=== PATIENT | male | born 1950 | race Caucasian/White ===

== ENCOUNTER → 2018-10-22 | Outpatient (CLI) | payer MEDICARE, OTHER ==
--- NOTE | 2018-10-22 08:45 | XR ---
EXAMINATION TYPE: XR chest 2V DATE OF EXAM: 10/22/2018 COMPARISON: NONE HISTORY: Cough per patient. Atelectasis per order. TECHNIQUE: Frontal and lateral views of the chest are obtained. FINDINGS: Elevated left hemidiaphragm is present. There is some mild chronic parenchymal change suspe cted without suspicious focal air space opacity, pleural effusion, or pneumothorax seen bilaterally. The cardiac silhouette size is within normal limits. The osseous structures are intact. IMPRESSION: No suspicious acute infiltrate.
[2018-10-22 09:18] LABS: HCT 47.5 % (39.0-53.0); HGB 15.7 gm/dL (13.0-17.5); MCH 31.8 pg (25.0-35.0); MCV 96.2 fL (80.0-100.0); Mean Platelet Volume 7.8; Platelet Count 216 k/uL (150-450); RBC 4.94 m/uL (4.30-5.90); RDW 11.6 % (11.5-15.5); WBC 5.6 k/uL (3.8-10.6)
== END | disposition home or self-care (01) ==
LOC: RADXRMAIN 08:07
PROVIDERS: ATTEND Physician Assistant
DX: J98.11 Atelectasis (principal); D72.829 Elevated white blood cell count, unspecified
CPT/HCPCS: 36415; 71046; 85027

== ENCOUNTER → 2018-11-05 | Outpatient (CLI) | payer MEDICARE, OTHER ==
--- NOTE | 2018-11-05 11:33 | CT ---
EXAMINATION TYPE: CT chest wo con DATE OF EXAM: 11/05/2018 COMPARISON: None HISTORY: cough, moderate persistent asthma CT DLP: 760.7 mGycm, Automated exposure control for dose reduction was used. CONTRAST: None TECHNIQUE: Axial images were obtained at 1 mm thick sections at 10 mm intervals. This will limit po rtions of the examination which may not be visualized within the [id number]. Images were obtained in the prone and supine views. FINDINGS: Portion of the thyroid visualized is normal. No suspicious lung nodules or focal infiltrat es are present. There is some compressive atelectasis within the lingula which reverses on prone and supine imaging. No enlarged mediastinal or hilar adenopathy is evident. There are scattered small aortopulmonic win mable lymph nodes. The ascending aorta diameter at the level of the main pulmonary artery is 4.4 cm. T he main pulmonary artery diameter at the bifurcation is 3.0 cm. Minimal coronary artery calcification s present. Limited CT sections are obtained through the upper abdomen. Abdomen is essentially unremarkable. IMPRESSIONS: 1. Normal High Resolution Chest CT. 2. There is a 4.4 cm ascending thoracic aortic aneurysm.
== END | disposition home or self-care (01) ==
LOC: RADCTMAIN 07:34
PROVIDERS: ATTEND Allergy & Immunology
DX: I71.2 Thoracic aortic aneurysm, without rupture (principal); J45.40 Moderate persistent asthma, uncomplicated; R05 Cough
CPT/HCPCS: 71250

== ENCOUNTER → 2019-05-28 | Outpatient (CLI) | payer MEDICARE, OTHER ==
--- NOTE | 2019-05-28 14:31 | CT ---
EXAMINATION TYPE: CT angio chest DATE OF EXAM: 05/28/2019 COMPARISON: 11/05/2018 HISTORY: Follow up on thoracic aneurysm CT DLP: 413.4 mGycm. Automated Exposure Control for Dose Reduction was Utilized. CONTRAST: CTA scan of the thorax is performed with IV Contrast, patient injected with 100 mL of Isovue 370, pul monary embolism protocol. MIP Images are created on CT scanner and reviewed. FINDINGS: LUNGS: The lungs are grossly clear, there is no concerning parenchymal mass or nodule identified. T here is no pleural effusion or pneumothorax seen. The tracheobronchial tree is patent. MEDIASTINUM: Descending thoracic aorta is within normal limits of size measuring 3.0 cm. Mild aneurys mal dilatation of the aortic root measuring 4.0 cm and ascending thoracic aorta measuring 4.1 cm. Pul sation artifact limits evaluation of the aortic root dissection. No enlargement of the main pulmonary artery. There are no greater than 1 cm hilar or mediastinal lymph nodes. Mild coronary calcification s. No cardiomegaly or pericardial effusion is seen. OTHER: Cortical retraction of the right upper pole likely relates to prior scarring in the kidney. Le ft 1.5 cm renal cyst is seen. Stomach is incompletely distended. Mild multilevel degenerative changes of the thoracic spine. IMPRESSION: 1. Mild aneurysmal dilatation of the aortic root measuring 4.0 cm and ascending thoracic aorta measur ing 4.1 cm. The previous measurement on 11/05/2018 appears to be exaggerated given the high-resolution technique. 2. Bibasilar subsegmental atelectasis.
== END | disposition home or self-care (01) ==
LOC: RADCTMAIN 12:49
PROVIDERS: ATTEND Surgery
DX: I71.2 Thoracic aortic aneurysm, without rupture (principal); J98.11 Atelectasis
CPT/HCPCS: 36415; 71275; 82565; 84520

== ENCOUNTER → 2020-06-30 | Outpatient (CLI) | payer MEDICARE, OTHER ==
--- NOTE | 2020-06-30 10:32 | CT ---
EXAMINATION TYPE: CT angio chest DATE OF EXAM: 06/30/2020 10:16 AM COMPARISON: 05/28/2019 HISTORY: Follow up to thoracic aneurysm CT DLP: 837.7 mGycm Automated exposure control for dose reduction was used. CONTRAST: CTA scan of the thorax is performed without and with IV Contrast, patient injected with 100 mL of Iso evgeny 370, pulmonary embolism protocol. . FINDINGS: LUNGS: The lungs are grossly clear, there is no concerning parenchymal mass or nodule identified. T here is no pleural effusion or pneumothorax seen. The tracheobronchial tree is patent. MEDIASTINUM: There is satisfactory enhancement of the pulmonary artery and its branches, there is no CT evidence for pulmonary embolism. There are no greater than 1 cm hilar or mediastinal lymph nodes. Descending thoracic aorta is within normal limits of size measuring 3.0 cm. Mild aneurysmal dilata tion of the aortic root measuring 4.0 cm and ascending thoracic aorta measuring 4.3 cm. Pulsation art ifact limits evaluation of the aortic root dissection. No enlargement of the main pulmonary artery. OTHER: Cortical defect involving the right kidney compatible scarring chronic medical renal disease. Left-sided renal cyst stable. Hypertrophic and degenerative changes spine. IMPRESSION: 1. Ascending aortic aneurysm measures 4.3 cm and previously measured 4.1 cm. 2. Coronary artery atherosclerotic disease.
== END | disposition home or self-care (01) ==
LOC: RADCTMAIN 08:30
PROVIDERS: ATTEND Surgery
DX: I25.10 Atherosclerotic heart disease of native coronary artery without angina pectoris (principal); I71.2 Thoracic aortic aneurysm, without rupture
CPT/HCPCS: 82565; 84520; 71275; 36415; Q9967

== ENCOUNTER → 2021-06-23 | Outpatient (CLI) | payer MEDICARE, OTHER ==
--- NOTE | 2021-06-23 10:19 | CT ---
EXAMINATION TYPE: CT angio chest DATE OF EXAM: 06/23/2021 COMPARISON: 06/30/2020 HISTORY: thoracic aorta aneurysm CT DLP: 674.1 mGycm, Automated exposure control for dose reduction was used. CONTRAST: Performed injected with 80 mL of Isovue 370. TECHNIQUE: Axial images were obtained at 5 mm thick sections. Reconstructed images are reviewed on [employer] computer in the coronal plane. FINDINGS: Portion of the thyroid visualized is normal. No suspicious lung nodules or focal infiltrates are present. No enlarged mediastinal or hilar adenopathy is evident. The ascending aorta diameter at the level o f the main pulmonary artery is 4.1 cm. The main pulmonary artery diameter at the bifurcation is 2.6 cm. Coronary artery calcifications noted. The aorta at the aortic root measures 4.0 cm. The aorta at the main pulmonary artery is 4.1 cm. Trans verse dimension of the aorta at the aortic arch is 3.0 cm. The aorta at the diaphragm measures 3.[address] sections are obtained through the upper abdomen. Abdomen is essentially unremarkable. IMPRESSIONS: 1. No increasing size of ascending thoracic aortic aneurysm evident.
== END | disposition home or self-care (01) ==
LOC: RADCTMAIN 07:28
PROVIDERS: ATTEND Surgery
DX: I71.2 Thoracic aortic aneurysm, without rupture (principal)
CPT/HCPCS: 82565; 84520; 71275; 36415; Q9967

== ENCOUNTER → 2022-01-18 | Outpatient (CLI) | payer MEDICARE, OTHER ==
--- NOTE | 2022-01-18 11:30 | US ---
EXAMINATION TYPE: US carotid duplex BILAT DATE OF EXAM: 01/18/2022 COMPARISON: NONE CLINICAL HISTORY: R42 DIZZINESS AND GIDDINESS. TECHNIQUE: Carotid duplex ultrasound examination. Indirect Doppler criteria was utilized. FINDINGS: EXAM MEASUREMENTS: RIGHT: Peak Systolic Velocity (PSV) cm/sec ----- Right CCA: 53.8 ----- Right ICA: 82.5 ----- Right ECA: 69.4 ICA/CCA ratio: 1.5 RIGHT: End Diastole cm/sec ----- Right CCA: 15.4 ----- Right ICA: 26.7 ----- Right ECA: 11.9 LEFT: Peak Systolic Velocity (PSV) cm/sec ----- Left CCA: 63.3 ----- Left ICA: 72.1 ----- Left ECA: 61.6 ICA/CCA ratio: 1.1 LEFT: End Diastole cm/sec ----- Left CCA: 18.8 ----- Left ICA: 28.4 ----- Left ECA: 11.9 VERTEBRALS (direction of flow): Right Vertebral: Antegrade Left Vertebral: Antegrade Rhythm: Normal BARIATRIC SURGEON NOTES: No significant stenosis seen. Mildly elevated right ICA as compared to CCA due to being tortuous distally. IMPRESSION: Atheromatous plaquing noted at the right carotid bifurcation. Significant flow-limiting stenosis base d on velocity measurements is not evident. Note is made of tortuosity distal right internal carotid a rtery Criteria for Assigning % of Stenosis / Diameter reduction (Estimation based on the indirect measurements of the internal carotid artery velocities (ICA PSV). 1. Normal (no stenosis)=ICA PSV < 125 cm/s: ratio < 2.0: ICA EDV<40 cm/s. 2. Less than 50% stenosis=ICA PSV < 125 cm/s: ratio < 2.0: ICA EDV<40 cm/s. 3. 50 to 69% stenosis=ICA PSV of 125 to 230 cm/s: ration 2.0 ? 4.0: ICA EDV 40-100 cm/s. 4. Greater than 70% stenosis to near occlusion= ICA PSV > 230 cm/s: ratio > 4.0: ICA EDV > 100 cm/s. 5. Near occlusion= ICA PSV velocities may be low or undetectable: variable ratio and ICA EDV. 6. Total occlusion=unable to detect flow.
== END | disposition home or self-care (01) ==
LOC: RADUSWWP 10:53
PROVIDERS: ATTEND Family Medicine
DX: I65.21 Occlusion and stenosis of right carotid artery (principal)
CPT/HCPCS: 93880

== ENCOUNTER → 2023-07-03 | Outpatient (CLI) | payer MEDICARE, OTHER ==
[2023-07-03 13:33] LABS: African American GFR (CKD) 84 (>60 ml/min/1.73 sqM); Blood Urea Nitrogen 23 mg/dL (9-20); Non-African American GFR(CKD) 72 (>60 ml/min/1.73 sqM)
--- NOTE | 2023-07-03 14:37 | CT ---
EXAMINATION TYPE: CT angio chest CT DLP: 659.5 mGycm, Automated exposure control for dose reduction was used. DATE OF EXAM: 07/03/2023 2:02 PM COMPARISON: CT 06/23/2021. CLINICAL INDICATION:Male, 72 years old with history of I71.2 Thoracic aortic aneurysm, without ruptur e; aneurysm TECHNIQUE/CONTRAST: CTA scan of the thorax is performed with IV Contrast, patient injected with 100 mL of Isovue 370, MIP images are created and reviewed these are created on a separate workstation.. FINDINGS: Lungs/Pleura: No evidence of focal consolidation, pleural effusion or pneumothorax. Airway: Large airways are patent. Heart: Heart is within normal limits for size. Vasculature: No evidence for intramural hematoma on noncontrast imaging. No evidence of intimal flap to suggest dissection. No aneurysm identified. Scattered atherosclerotic disease. Ascending thoracic aorta ectasia up to 44 mm. Mediastinum: No gross evidence of adenopathy. Musculoskeletal: Mild degenerative disc disease changes are present throughout the thoracolumbar spin e. Soft Tissues: Unremarkable. Lower neck: No significant findings. Upper Abdomen: Left renal cyst. IMPRESSION: 1. Ectasia of ascending thoracic aorta without evidence for aneurysm. Descending thoracic aorta is w ithin normal limits for size. No evidence for occlusion dissection or pulmonary embolus. 2. No acute thoracic process. Follow up recommendations for incidental pulmonary nodules, if there are any, are per [employer] or [employer].
== END | disposition home or self-care (01) ==
LOC: RADCTMAIN 12:26
PROVIDERS: ATTEND Surgery
DX: I77.810 Thoracic aortic ectasia (principal)
CPT/HCPCS: 82565; 84520; 71275; Q9967

== ENCOUNTER 2023-07-08 12:28 | Inpatient (IN) | payer MEDICARE, OTHER ==
[2023-07-08 13:11] LABS: Glucose,Whole Blood 132 mg/dL (70-110)
--- NOTE | 2023-07-08 13:14 | ED ---
General Adult HPI - General Chief complaint: Neuro Symptoms/Deficit Stated complaint: weakness trouble talking Time Seen by Provider: 07/08/23 12:51 Source: patient, family, RN notes reviewed, old records reviewed Mode of arrival: ambulatory Limitations: no limitations - History of Present Illness Initial comments: Patient is a 72-year-old male who presents emergency department with neurological symptoms. Patient's last known well was 10 PM last night. Has a history apparently of respiratory aortic aneurysm however recent imaging obtained this month revealed that it does not appear to be present any longer.. Is a history of drinking alcohol daily. Denies any recent trauma. Went to bed at 2200 on 07/07/2023. Patient's had to wake him up this morning he seemed more weak than normal. Able to follow basic commands however states he has a mild headache and feels somewhat weak. Has a history of hypertension and hyperlipidemia as well. States he is not on blood thinners. Cannot recall his medications. His no other acute complaints at this time. Presents for further evaluation at this time. - Related Data Home Medications Medication Instructions Recorded Confirmed ALPRAZolam [Xanax] 0.25 mg PO DAILY PRN 07/08/23 07/08/23 Fluticasone/Umeclidin/Vilanter 1 puff INHALATION RT-DAILY 07/08/23 07/08/23 [[place] Ellipta 200-62.5-25] Irbesartan [Avapro] 300 mg PO DAILY 07/08/23 07/08/23 Montelukast [Singulair] 10 mg PO DAILY 07/08/23 07/08/23 Omeprazole [PriLOSEC] 20 mg PO BID 07/08/23 07/08/23 Rosuvastatin [Crestor] 10 mg PO DAILY 07/08/23 07/08/23 Sildenafil Citrate [Viagra] 100 mg PO DAILY PRN 07/08/23 07/08/23 Testosterone Cypionate 200 mg IM Q7D 07/08/23 07/08/23 [Depo-Testosterone] Zolpidem Tartrate [Ambien] 5 mg PO HS PRN 07/08/23 07/08/23 amLODIPine [Norvasc] 2.5 mg PO DAILY 07/08/23 07/08/23 oxyBUTYnin chloride [Ditropan] 5 mg PO TID 07/08/23 07/08/23 Allergies Allergy/AdvReac Type Severity Reaction Status Date / Time Penicillins Allergy Rash/Hives Verified 07/08/23 12:47 Review of Systems ROS Statement: Those systems with pertinent positive or pertinent negative responses have been documented in the HPI. Review of Systems: CONST: Denies fever EYES: Denies blurry vision ENT: Denies nasal congestion C/V: Denies Chest pain RESP: Denies shortness of breath GI: Denies abdominal pain : Denies dysuria SKIN: Denies rash. MSK: Denies joint pain. NEURO: Endorses headache, weakness ROS Other: All systems not noted in ROS Statement are negative. 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 HEAD: Normal with no signs of head trauma. EYES: PERRLA, EOMI, conjunctiva normal, no discharge. Pupils are 2 mm and equal bilaterally. ENT: Hearing grossly intact, normal oropharynx. RESPIRATORY: Clear breath sounds bilaterally. No wheezes, rales, or rhonchi. C/V: Regular rate and rhythm. S1 and S2 auscultated, no edema, peripheral pulses 2+ and intact throughout ABD: Abd is soft, nontender, nondistended EXT: Normal range of motion, no obvious deformity SKIN: No rashes or lesions observed on exposed skin. NEURO: Alert and oriented 3-4. Patient has an NIH of approximately 4. 1. each for dysarthria, ataxia and 1 extremity (left upper extremity), weakness with drift in the left upper extremity, weakness with drift of the left lower extremity. Last known well 0 on 07/07/2023. Woke up with symptoms this morning at 9:30 AM. Limitations: no limitations Course Vital Signs 07/08/23 07/08/23 07/08/23 12:41 13:31 15:00 Temperature 97.7 F Pulse Rate 92 89 89 Respiratory 16 20 18 Rate Blood Pressure 151/90 147/97 148/103 O2 Sat by Pulse 98 99 96 Oximetry 07/08/23 07/08/23 16:00 17:00 Temperature Pulse Rate 90 100 Respiratory 18 20 Rate Blood Pressure 144/95 147/102 O2 Sat by Pulse 97 97 Oximetry Medical Decision Making - Medical Decision Making Was pt. sent in by a medical professional or institution (, PA, CARDIOPULMONARY SPECIALIST, urgent care, hospital, or fpc...) When possible be specific @ -No Did you speak to anyone other than the patient for history (EMS, parent, family, police, friend...)? What history was obtained from this source @ -Patient's provided history including his baseline as well as her waking him up this morning which is abnormal. Did you review nursing and triage notes (agree or disagree)? Why? @ -I reviewed and agree with nursing and triage notes Were old charts reviewed (outside hosp., previous admission, EMS record, old EKG, old radiological studies, urgent care reports/EKG's, fpc records)? Report findings @ -Old charts reviewed Differential Diagnosis (chest pain, altered mental status, abdominal pain women, abdominal pain men, vaginal bleeding, weakness, fever, dyspnea, syncope, headache, dizziness, GI bleed, back pain, seizure, CVA, palpatations, mental health, musculoskeletal)? @ -Differential CVA Ischemic stroke, hemorrhagic stroke, brain tumor, atypical migraine, Wernicke's encephalopathy, seizure, multiple sclerosis, meningitis, encephalitis, hypoglycemia, Guillain-Villavicencio, electrolytes disturbance, myasthenia gravis.... This is not meant to be an all-inclusive list EKG interpreted by me (3pts min.). @ -As above X-rays interpreted by me (1pt min.). @ -Chest X-ray reveals no obvious acute cardio pulmonary process. CT interpreted by me (1pt min.). @ -Patient's CT imaging negative for any obvious acute process. This included CT angiogram of the head and neck as well as CT brain without contrast. U/S interpreted by me (1pt. min.). @ -None done What testing was considered but not performed or refused? (CT, X-rays, U/S, labs)? Why? @ -None What meds were considered but not given or refused? Why? @ -None Did you discuss the management of the patient with other professionals (professionals i.e. DrJaimee, PA, CARDIOPULMONARY SPECIALIST, lab, RT, psych nurse, health and social care teacher, material attendant, teacher, police or patrol park officer, comp field case manager)? Give summary @ -I discussed with neuro critical care on-call at 1310. He was in agreement with the plan. Was in agreement, stroke. Was in agreement that risks far outweigh the benefits of thrombolytics at this time. Discussed imaging results with Dr. Trivedi who was in agreement with the plan for medical management at this time. Recommended aspirin and Plavix. Recommended admission for neurology evaluation. I spoke with the admitting physician, Dr. York who accepted the admission. Was smoking cessation discussed for >3mins.? @ -No Was critical care preformed (if so, how long)? @ -Yes, 36 minutes. Were there social determinants of health that impacted care today? How? (Homelessness, low income, unemployed, alcoholism, drug addiction, transportation, low edu. Level, literacy, decrease access to med. care, assisted, rehab)? @ -No Was there de-escalation of care discussed even if they declined (Discuss DNR or withdrawal of care, Hospice)? DNR status @ -No What co-morbidities impacted this encounter? (DM, HTN, Smoking, COPD, CAD, Cancer, CVA, ARF, Chemo, Hep., AIDS, mental health diagnosis, sleep apnea, morbid obesity)? @ -None Was patient admitted / discharged? Hospital course, mention meds given and route, prescriptions, significant lab abnormalities, going to OR and other pertinent info. @ -Based on the patient's presentation and physical exam, he presents with focal neurological deficits. Concerned for possible stroke. NIH is 4. Last known well was 2200 on 07/07/2023. Weight stroke symptoms. Code stroke was activated. Patient patient's family in agreement this plan. Vital signs are currently within acceptable limits. Accu-Chek is within acceptable limits. EKG shows no signs of acute ischemia. I spoke with neuro critical care physician Dr. Trivedi who was in agreement with plan for code stroke and that patient is not a candidate for thrombolytic therapy at this time as risks far outweigh the benefits. Patient is outside of the window. Patient's CT imaging negative for any obvious acute findings. I discussed the results with Dr. Trivedi who was in agreement with the plan for medical management at this time. Was in agreement with initiating aspirin and Plavix therapy. Recommended admission. Neurology evaluation. Laboratory studies remarkable for a mild leukocytosis of 11.7. Patient's cre atinine kinase level is elevated to 2300. Remainder of the labs unremarkable.Patient will be given 2 L fluid bolus for rhabdomyolysis. On reevaluation, NIH is 1 at this time. Patient only has dysarthria. I discussed with the patient admission and he was in agreement this plan. He will be given aspirin and Plavix. I spoke the admitting team, Dr. York who accepted the patient. Undiagnosed new problem with uncertain prognosis? @ -No Drug Therapy requiring intensive monitoring for toxicity (Heparin, Nitro, Insulin, Cardizem)? @ -No Were any procedures done? @ -No Diagnosis/symptom? @ -CVA, dysarthria, rhabdomyolysis Acute, or Chronic, or Acute on Chronic? @ -Acute Uncomplicated (without systemic symptoms) or Complicated (systemic symptoms)? @ -Complicated Side effects of treatment? @ -none Exacerbation, Progression, or Severe Exacerbation] @ -no Poses a threat to life or bodily function? @ -Yes - Lab Data Result diagrams: 07/08/23 13:27 07/08/23 13:27 Lab Results 07/08/23 07/08/23 07/08/23 Range/Units 13:00 13:27 13:27 WBC 11.7 H (3.8-10.6) k/uL RBC 4.44 (4.30-5.90) m/uL Hgb 14.5 (13.0-17.5) gm/dL Hct 43.7 (39.0-53.0) % MCV 98.4 (80.0-100.0) fL MCH 32.7 (25.0-35.0) pg MCHC 33.2 (31.0-37.0) g/dL RDW 12.0 (11.5-15.5) % Plt Count 204 (150-450) k/uL MPV 8.1 Neutrophils % 89 % Lymphocytes % 5 % Monocytes % 5 % Eosinophils % 0 % Basophils % 0 % Neutrophils # 10.4 H (1.3-7.7) k/uL Lymphocytes # 0.6 L (1.0-4.8) k/uL Monocytes # 0.6 (0-1.0) k/uL Eosinophils # 0.0 (0-0.7) k/uL Basophils # 0.0 (0-0.2) k/uL PT 11.2 (10.0-12.5) sec INR 1.0 (<1.2) APTT 22.1 (22.0-30.0) sec Sodium (137-145) mmol/L Potassium (3.5-5.1) mmol/L Chloride (98-107) mmol/L Carbon Dioxide (22-30) mmol/L Anion Gap mmol/L BUN (9-20) mg/dL Creatinine (0.66-1.25) mg/dL Est GFR (CKD-EPI)AfAm (>60 ml/min/1.73 sqM) Est GFR (CKD-EPI)NonAf (>60 ml/min/1.73 sqM) Glucose (74-99) mg/dL POC Glucose (mg/dL) 132 H (70-110) mg/dL POC Glu Mysql Database Administrator ID Fifi Lares Calcium (8.4-10.2) mg/dL Total Bilirubin (0.2-1.3) mg/dL AST (17-59) U/L ALT (4-49) U/L Alkaline Phosphatase (38-126) U/L Ammonia (<30) umol/L Creatine Kinase (55-170) U/L Troponin I (0.000-0.034) ng/mL Total Protein (6.3-8.2) g/dL Albumin (3.5-5.0) g/dL Urine Color Urine Appearance (Clear) Urine pH (5.0-8.0) Ur Specific [place] (1.001-1.035) Urine Protein (Negative) Urine Glucose (UA) (Negative) Urine Ketones (Negative) Urine Blood (Negative) Urine Nitrite (Negative) Urine Bilirubin (Negative) Urine Urobilinogen (<2.0) mg/dL Ur Leukocyte Esterase (Negative) Serum Alcohol mg/dL Influenza Type A (PCR) (Not Detectd) Influenza Type B (PCR) (Not Detectd) RSV (PCR) (Not Detectd) SARS-CoV-2 (PCR) (Not Detectd) 07/08/23 07/08/23 07/08/23 Range/Units 13:27 13:27 13:27 WBC (3.8-10.6) k/uL RBC (4.30-5.90) m/uL Hgb (13.0-17.5) gm/dL Hct (39.0-53.0) % MCV (80.0-100.0) fL MCH (25.0-35.0) pg MCHC (31.0-37.0) g/dL RDW (11.5-15.5) % Plt Count (150-450) k/uL MPV Neutrophils % % Lymphocytes % % Monocytes % % Eosinophils % % Basophils % % Neutrophils # (1.3-7.7) k/uL Lymphocytes # (1.0-4.8) k/uL Monocytes # (0-1.0) k/uL Eosinophils # (0-0.7) k/uL Basophils # (0-0.2) k/uL PT (10.0-12.5) sec INR (<1.2) APTT (22.0-30.0) sec Sodium 140 (137-145) mmol/L Potassium 4.4 (3.5-5.1) mmol/L Chloride 109 H (98-107) mmol/L Carbon Dioxide 24 (22-30) mmol/L Anion Gap 7 mmol/L BUN 20 (9-20) mg/dL Creatinine 0.99 (0.66-1.25) mg/dL Est GFR (CKD-EPI)AfAm 88 (>60 ml/min/1.73 sqM) Est GFR (CKD-EPI)NonAf 76 (>60 ml/min/1.73 sqM) Glucose 143 H (74-99) mg/dL POC Glucose (mg/dL) (70-110) mg/dL POC Glu Mysql Database Administrator ID Calcium 9.7 (8.4-10.2) mg/dL Total Bilirubin 0.7 (0.2-1.3) mg/dL AST 70 H (17-59) U/L ALT 31 (4-49) U/L Alkaline Phosphatase 67 (38-126) U/L Ammonia (<30) umol/L Creatine Kinase 2371 H* (55-170) U/L Troponin I <0.012 (0.000-0.034) ng/mL Total Protein 7.5 (6.3-8.2) g/dL Albumin 4.5 (3.5-5.0) g/dL Urine Color Light Yellow Urine Appearance Clear (Clear) Urine pH 6.5 (5.0-8.0) Ur Specific [place] 1.041 H (1.001-1.035) Urine Protein Trace H (Negative) Urine Glucose (UA) Negative (Negative) Urine Ketones 1+ H (Negative) Urine Blood Negative (Negative) Urine Nitrite Negative (Negative) Urine Bilirubin Negative (Negative) Urine Urobilinogen <2.0 (<2.0) mg/dL Ur Leukocyte Esterase Negative (Negative) Serum Alcohol <10 mg/dL Influenza Type A (PCR) (Not Detectd) Influenza Type B (PCR) (Not Detectd) RSV (PCR) (Not Detectd) SARS-CoV-2 (PCR) (Not Detectd) 07/08/23 07/08/23 Range/Units 13:27 13:27 WBC (3.8-10.6) k/uL RBC (4.30-5.90) m/uL Hgb (13.0-17.5) gm/dL Hct (39.0-53.0) % MCV (80.0-100.0) fL MCH (25.0-35.0) pg MCHC (31.0-37.0) g/dL RDW (11.5-15.5) % Plt Count (150-450) k/uL MPV Neutrophils % % Lymphocytes % % Monocytes % % Eosinophils % % Basophils % % Neutrophils # (1.3-7.7) k/uL Lymphocytes # (1.0-4.8) k/uL Monocytes # (0-1.0) k/uL Eosinophils # (0-0.7) k/uL Basophils # (0-0.2) k/uL PT (10.0-12.5) sec INR (<1.2) APTT (22.0-30.0) sec Sodium (137-145) mmol/L Potassium (3.5-5.1) mmol/L Chloride (98-107) mmol/L Carbon Dioxide (22-30) mmol/L Anion Gap mmol/L BUN (9-20) mg/dL Creatinine (0.66-1.25) mg/dL Est GFR (CKD-EPI)AfAm (>60 ml/min/1.73 sqM) Est GFR (CKD-EPI)NonAf (>60 ml/min/1.73 sqM) Glucose (74-99) mg/dL POC Glucose (mg/dL) (70-110) mg/dL POC Glu Mysql Database Administrator ID Calcium (8.4-10.2) mg/dL Total Bilirubin (0.2-1.3) mg/dL AST (17-59) U/L ALT (4-49) U/L Alkaline Phosphatase (38-126) U/L Ammonia <9 (<30) umol/L Creatine Kinase (55-170) U/L Troponin I (0.000-0.034) ng/mL Total Protein (6.3-8.2) g/dL Albumin (3.5-5.0) g/dL Urine Color Urine Appearance (Clear) Urine pH (5.0-8.0) Ur Specific [place] (1.001-1.035) Urine Protein (Negative) Urine Glucose (UA) (Negative) Urine Ketones (Negative) Urine Blood (Negative) Urine Nitrite (Negative) Urine Bilirubin (Negative) Urine Urobilinogen (<2.0) mg/dL Ur Leukocyte Esterase (Negative) Serum Alcohol mg/dL Influenza Type A (PCR) Not Detected (Not Detectd) Influenza Type B (PCR) Not Detected (Not Detectd) RSV (PCR) Not Detected (Not Detectd) SARS-CoV-2 (PCR) Not Detected (Not Detectd) - EKG Data -: EKG Interpreted by Me EKG Comments: 12-lead Electrocardiogram Interpretation Note EKG was reviewed and interpreted by myself. 12-lead ECG performed at 1307 is interpreted by me as revealing normal sinus rhythm with first-degree AV block at a rate of 89 beats per minute. [place] interval is 220 ms, QRS duration is 107 ms, QTc is 411 ms. Hubertus is normal.. There were no ST or T wave abnormalities to suggest myocardial ischemia or injury. R wave progression across the precordium was satisfactory. By my interpretation this EKG is non-diagnostic for acute ischemia. Critical Care Time Critical Care Time: Yes Total Critical Care Time: 36 Disposition Clinical Impression: Cerebrovascular accident (CVA), Rhabdomyolysis, Dysarthria Disposition: ADMITTED IP TO THIS HOSP Condition: Stable Time of Disposition: 14:30
--- NOTE | 2023-07-08 13:34 | CT ---
Head CT without contrast HISTORY: Stroke. COMPARISON: None. TECHNIQUE: Multiple axial images are obtained from the skull base to vertex without use of IV contras t material. FINDINGS: The ventricles, basal cisterns and sulci over convexities are within normal limits for the patient's age and there is no mass effect or shift of the midline structures. No abnormal density is seen throughout the brain parenchyma. The bhatia-white matter differentiation is well preserved. There is no acute intra or extra-axial hemorrhage. There is scattered calcification within the middle cerebral arteries bilaterally. The posterior fossa including the brainstem, fourth ventricle and cerebellopontine angles are grossly normal. Intraorbital contents appear normal and symmetric. There are mild chronic inflammatory changes in the maxillary sinuses right greater than left. The mas toid air cells are well aerated. IMPRESSION: 1. No acute bleed or mass effect. 2. Chronic maxillary sinusitis
[2023-07-08 13:35] LABS: Basophils % (A) 0 %; Eosinophils % (A) 0 %; HCT 43.7 % (39.0-53.0); HGB 14.5 gm/dL (13.0-17.5); Lymphocytes # (A) 0.6 k/uL (1.0-4.8); Lymphocytes % (A) 5 %; MCH 32.7 pg (25.0-35.0); MCHC 33.2 g/dL (31.0-37.0); MCV 98.4 fL (80.0-100.0); Mean Platelet Volume 8.1; Monocytes # (A) 0.6 k/uL (0-1.0); Monocytes % (A) 5 %; Neutrophils # (A) 10.4 k/uL (1.3-7.7); Neutrophils % (A) 89 %; Platelet Count 204 k/uL (150-450); RBC 4.44 m/uL (4.30-5.90); WBC 11.7 k/uL (3.8-10.6)
--- NOTE | 2023-07-08 13:35 | XR ---
EXAMINATION TYPE: XR chest 2V DATE OF EXAM: 07/08/2023 COMPARISON: 10/22/2018 HISTORY: Altered mental status TECHNIQUE: Frontal and lateral views of the chest are obtained. FINDINGS: There is no focal air space opacity, pleural effusion, or pneumothorax seen. The cardiac silhouette size is within normal limits. The osseous structures are intact. IMPRESSION: No acute cardiopulmonary process.
--- NOTE | 2023-07-08 13:42 | CT ---
EXAMINATION TYPE: CT angio head neck DATE OF EXAM: 07/08/2023 HISTORY: stroke COMPARISON: None CT DLP: 482.7 mGycm. Automated Exposure Control for Dose Reduction was Utilized. TECHNIQUE: CTA scan of the head and neck is performed with IV Contrast, patient injected with 65 mL of Isovue 370, axial images are obtained, coronal and sagittal reformatted images are reviewed. 3D re constructed images are created on an independent workstation and reviewed. FINDINGS: The brachiocephalic origins are widely patent. The common and internal carotid arteries are widely pa tent within the neck without significant stenosis. There is mild eccentric calcification the carotid bifurcations, right greater than left but no stenosis. The vertebral arteries are patent within the n steven and the right vertebral artery is dominant. Intracranially, there is no sizable aneurysm sac, vascular malformation, branch occlusion or segment al stenosis. There are mild scattered calcifications in the right carotid siphon and in the middle ce rebral arteries bilaterally. IMPRESSION: Mild scattered atherosclerotic changes in the carotid arteries in the neck and intracranially as desc ribed above. There is no evidence of significant stenosis or branch occlusion NASCET criteria was used in interpretation of this exam?
[2023-07-08 13:45] LABS: Partial Thromboplastin Time 22.1 sec (22.0-30.0); Prothrombin Time 11.2 sec (10.0-12.5)
[2023-07-08 13:48] LABS: ALT 31 U/L (4-49); AST 70 U/L (17-59); African American GFR (CKD) 88 (>60 ml/min/1.73 sqM); Albumin 4.5 g/dL (3.5-5.0); Alcohol <10 mg/dL; Alkaline Phosphatase 67 U/L (38-126); Anion Gap 7 mmol/L; Blood Urea Nitrogen 20 mg/dL (9-20); Calcium 9.7 mg/dL (8.4-10.2); Carbon Dioxide 24 mmol/L (22-30); Chloride 109 mmol/L (98-107); Glucose 143 mg/dL (74-99); Non-African American GFR(CKD) 76 (>60 ml/min/1.73 sqM); Potassium 4.4 mmol/L (3.5-5.1); Sodium 140 mmol/L (137-145); Total Bilirubin 0.7 mg/dL (0.2-1.3); Total Protein 7.5 g/dL (6.3-8.2)
[2023-07-08] MEDS ORDERED: ASPIRIN 325 MG TAB PO STA (14:18)
[2023-07-08 14:20] LABS: Creatine Kinase 2371 U/L (55-170)
[2023-07-08] MEDS ORDERED: SODIUM CHLORIDE 0.9% 2,000 ML IV STA (14:49)
[2023-07-08] MEDS ORDERED: SODIUM CHLORIDE 0.9% 1,000 ML IV STA (14:49)
[2023-07-08] MEDS: CLOPIDOGREL 75 MG TAB PO SCH (14:56)
[2023-07-08] MEDS ORDERED: ALPRAZolam 0.25 MG TAB PO PRN (15:30)
[2023-07-08 15:45] LABS: Appearance,Urine Clear (Clear); Bilirubin,Urine Negative (Negative); Blood,Urine Negative (Negative); Color,Urine Light Yellow; Glucose,Urine (UA) Negative (Negative); Ketones,Urine 1+ (Negative); Leukocyte Esterase,Urine Negative (Negative); Nitrite,Urine Negative (Negative); PH, Urine 6.5 (5.0-8.0); Protein,Urine Trace (Negative); Specific Gravity,Urine 1.041 (1.001-1.035); Urobilinogen,Urine <2.0 mg/dL (<2.0)
[2023-07-08 16:09] LABS: Amphetamine Screen,Urine Not Detected (NotDetected); Barbiturate Screen,Urine Not Detected (NotDetected); Benzodiazepines Screen,Urine Not Detected (NotDetected); Cocaine Screen,Urine Not Detected (NotDetected); Methadone Screen, Urine Not Detected (NotDetected); Opiate Screen,Urine Not Detected (NotDetected); Oxycodone Screen, Urine Not Detected (NotDetected); Phencyclidine Screen,Urine Not Detected (NotDetected); Tricyclic Antidepressant,Urine Not Detected (NotDetected); Urn Cannabinoid Scrn Not Detected (NotDetected)
[2023-07-08] MEDS ORDERED: LORazepam 1 MG TAB PO PRN ×3 (16:28)
[2023-07-08] MEDS ORDERED: LORazepam 0.5 MG TAB PO PRN (16:28)
--- NOTE | 2023-07-08 16:31 | P.HPIM ---
History of Present Illness H&P Date: 07/08/23 72-year-old male with PMH of CVA, anxiety, hypertension, COPD, GERD, urinary urgency, dyslipidemia. He presents to the ED accompanied by his providing majority of the history. Last known normal was 10PM last night. Patient usually wakes up around 6AM. attempted to wake the patient up around 9:30AM when she noted that he had difficulty standing up. She also noted had a difficult time finding his words. No slurred speech. No focal weakness. No confusion. He does not smoke cigarettes. He does drink a bottle of wine daily. In the ED, he underwent extensive evaluation. CBC WBC count 11.7. Coagulation panel within normal limits. D-Dimer 0.87. CMP Cl 109, glu 143, AST 70. Troponin < 0.012. Ammonia < 9. CPK 2371. EKG sinus rhythm, first degree AV block, incomplete RBBB. CXR no acute process. CT brain chronic maxillary sinusitis. CTA head and neck mild atherosclerotic changes in the carotid arteries with no significant stenosis. Patient is admitted for further management. General: non toxic, no distress, appears at stated age Derm: warm, dry Head: atraumatic, normocephalic, symmetric Eyes: EOMI, no lid lag, anicteric sclera Mouth: no lip lesion, mucus membranes moist Cardiovascular: Normal S1 S2, no murmur Lungs: Clear to auscultation bilaterally, no rhonchi, no rales Abdominal: soft, nontender to palpation, no guarding, no appreciable organomegaly. Ext: no gross muscle atrophy, no edema, no contractures Neuro: CN II-XII grossly intact. No focal neurologic deficits. Psych: Alert and oriented x 3 Based on my assessment of this patient, this patient meets a high complexity level of care. Patient has an acute diagnosis of TIA vs CVA that poses a threat to life or bod gerda function. TIA vs CVA: Symptoms include expressive aphasia. CVA workup initiated. MRI brain. Echo. Carotid US. A1c. Lipid panel. Neurochecks. Telemetry monitoring. ASA 81 mg PO QD. Plavix 75 mg PO QD. Increase Crestor to 20 mg PO QD (high intensity). Neurology consult. Rhabdomyolysis: Start NS at 75 cc/hr. Monitor renal function. Trend CPK. Transaminitis: Likely related to EtOH abuse. Leukocytosis: Likely reactive. No signs of active infection. Monitor fever profile. Alcohol abuse: CIWA protocol and Ativan PRN per CIWA protocol. Add MVI, Folate, Thiamine 5 supplementation. Chronic conditions: Anxiety, hypertension, COPD, GERD, urinary urgency, dyslipidemia CODE STATUS: FULL CODE. DVT Prophylaxis: Lovenox SQ GI Prophylaxis: Designated medical POA if patient is not able to make medical decisions for themselves: . I have reviewed the following home service consultant notes: I have reviewed the results of the following tests: As above. I have ordered the following tests: As above. I have discussed the care of this patient with the following independent historian: I have independently interpreted the following test below: EKG as above. I have discussed the management of this patient with the following physician: ED provider. 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 Past Psychological History: No Psychological Hx Reported Smoking Status: Never smoker Past Alcohol Use History: Heavy Past Drug Use History: None Reported Medications and Allergies Home Medications Medication Instructions Recorded Confirmed Type ALPRAZolam [Xanax] 0.25 mg PO DAILY PRN 07/08/23 07/08/23 History Fluticasone/Umeclidin/Vilanter 1 puff INHALATION RT-DAILY 07/08/23 07/08/23 History [[place] Ellipta 200-62.5-25] Irbesartan [Avapro] 300 mg PO DAILY 07/08/23 07/08/23 History Montelukast [Singulair] 10 mg PO DAILY 07/08/23 07/08/23 History Omeprazole [PriLOSEC] 20 mg PO BID 07/08/23 07/08/23 History Rosuvastatin [Crestor] 10 mg PO DAILY 07/08/23 07/08/23 History Sildenafil Citrate [Viagra] 100 mg PO DAILY PRN 07/08/23 07/08/23 History Testosterone Cypionate 200 mg IM Q7D 07/08/23 07/08/23 History [Depo-Testosterone] Zolpidem Tartrate [Ambien] 5 mg PO HS PRN 07/08/23 07/08/23 History amLODIPine [Norvasc] 2.5 mg PO DAILY 07/08/23 07/08/23 History oxyBUTYnin chloride [Ditropan] 5 mg PO TID 07/08/23 07/08/23 History Allergies Allergy/AdvReac Type Severity Reaction Status Date / Time Penicillins Allergy Rash/Hives Verified 07/08/23 12:47 Physical Exam Vitals: Vital Signs Temp Pulse Resp BP Pulse Ox 07/08/23 13:31 89 20 147/97 99 07/08/23 12:41 97.7 F 92 16 151/90 98 Intake and Output 07/08/23 07/08/23 07/08/23 06:59 14:59 22:59 Other: Weight 81.647 kg Results CBC & Chem 7: 07/08/23 13:27 07/08/23 13:27 Labs: Abnormal Lab Results - Last 24 Hours (Table) 07/08/23 07/08/23 07/08/23 Range/Units 13:00 13:27 13:27 WBC 11.7 H (3.8-10.6) k/uL Neutrophils # 10.4 H (1.3-7.7) k/uL Lymphocytes # 0.6 L (1.0-4.8) k/uL Chloride 109 H (98-107) mmol/L Glucose 143 H (74-99) mg/dL POC Glucose (mg/dL) 132 H (70-110) mg/dL AST 70 H (17-59) U/L Creatine Kinase 2371 H* (55-170) U/L Ur Specific [place] (1.001-1.035) Urine Protein (Negative) Urine Ketones (Negative) 07/08/23 Range/Units 13:27 WBC (3.8-10.6) k/uL Neutrophils # (1.3-7.7) k/uL Lymphocytes # (1.0-4.8) k/uL Chloride (98-107) mmol/L Glucose (74-99) mg/dL POC Glucose (mg/dL) (70-110) mg/dL AST (17-59) U/L Creatine Kinase (55-170) U/L Ur Specific [place] 1.041 H (1.001-1.035) Urine Protein Trace H (Negative) Urine Ketones 1+ H (Negative)
--- NOTE | 2023-07-08 18:17 | US ---
EXAMINATION TYPE: US carotid duplex BILAT DATE OF EXAM: 07/08/2023 COMPARISON: CLINICAL INDICATION: Male, 72 years old with history of CVA; History stroke x 16 years ago. HTN- on meds. Patient states unable to move or wake up today. TECHNIQUE: Carotid duplex ultrasound examination. Indirect Doppler criteria was utilized. FINDINGS: EXAM MEASUREMENTS: RIGHT: Peak Systolic Velocity (PSV) cm/sec ----- Right CCA: 55.7 ----- Right ICA: 66.8 ----- Right ECA: 90.5 ICA/CCA ratio: 1.2 RIGHT: End Diastole cm/sec ----- Right CCA: 10.4 ----- Right ICA: 21.5 ----- Right ECA: 15.4 LEFT: Peak Systolic Velocity (PSV) cm/sec ----- Left CCA: 76.5 ----- Left ICA: 64.5 ----- Left ECA: 90.8 ICA/CCA ratio: 0.8 LEFT: End Diastole cm/sec ----- Left CCA: 20.4 ----- Left ICA: 21.7 ----- Left ECA: 23.7 VERTEBRALS (direction of flow): Right Vertebral: Antegrade Left Vertebral: Antegrade Rhythm: Normal DRY END TESTER NOTES: Plaque in bilateral bulbs. No elevated velocities. IMPRESSION: No evidence of hemodynamically significant stenosis. Criteria for Assigning % of Stenosis / Diameter reduction (Estimation based on the indirect measurements of the internal carotid artery velocities (ICA PSV). 1. Normal (no stenosis)=ICA PSV < 125 cm/s: ratio < 2.0: ICA EDV<40 cm/s. 2. Less than 50% stenosis=ICA PSV < 125 cm/s: ratio < 2.0: ICA EDV<40 cm/s. 3. 50 to 69% stenosis=ICA PSV of 125 to 230 cm/s: ration 2.0 ? 4.0: ICA EDV 40-100 cm/s. 4. Greater than 70% stenosis to near occlusion= ICA PSV > 230 cm/s: ratio > 4.0: ICA EDV > 100 cm/s. 5. Near occlusion= ICA PSV velocities may be low or undetectable: variable ratio and ICA EDV. 6. Total occlusion=unable to detect flow.
[2023-07-08] MEDS: oxyBUTYnin chloride 5 MG TAB PO SCH (22:31)
[2023-07-09] MEDS: LOSARTAN 50 MG TAB PO SCH (09:04)
[2023-07-09] MEDS: MULTIVITAMINS, THERA 1 EACH TAB PO SCH (09:05)
[2023-07-09] MEDS: ATORVASTATIN 20 MG TAB PO SCH (09:05)
[2023-07-09] MEDS: ASPIRIN 81 MG PO SCH (09:05)
[2023-07-09] MEDS: PANTOPRAZOLE 40 MG TABLET PO SCH (09:05)
[2023-07-09] MEDS: CLOPIDOGREL 75 MG TAB PO SCH (09:05)
[2023-07-09] MEDS: FOLIC ACID 1 MG TAB PO SCH (09:05)
[2023-07-09] MEDS: MONTELUKAST 10 MG TAB PO SCH (09:05)
[2023-07-09] MEDS: amLODIPine 2.5 MG TAB PO SCH (09:06)
[2023-07-09] MEDS: THIAMINE 100 MG TAB PO SCH (09:06)
[2023-07-09] MEDS: oxyBUTYnin chloride 5 MG TAB PO SCH ×3 (09:06→20:23)
[2023-07-09] MEDS: ENOXAPARIN 40 MG/0.4 ML SYRINGE SQ SCH (09:11)
[2023-07-09 09:13] LABS: Chol/HDL Ratio 2.32 Ratio; LDL Cholesterol,Calculated 60.2 mg/dL (0.0-131.0)
--- NOTE | 2023-07-09 10:39 | P.PN ---
Subjective Progress Note Date: 07/09/23 72-year-old male with PMH of CVA, anxiety, hypertension, COPD, GERD, urinary urgency, dyslipidemia. He presents to the ED accompanied by his providing majority of the history. Last known normal was 10PM last night. Patient usually wakes up around 6AM. attempted to wake the patient up around 9:30AM when she noted that he had difficulty standing up. She also noted had a difficult time finding his words. No slurred speech. No focal weakness. No confusion. He does not smoke cigarettes. He does drink a bottle of wine daily. In the ED, he underwent extensive evaluation. CBC WBC count 11.7. Coagulation panel within normal limits. D-Dimer 0.87. CMP Cl 109, glu 143, AST 70. Troponin < 0.012. Ammonia < 9. CPK 2371. EKG sinus rhythm, first degree AV block, incomplete RBBB. CXR no acute process. COVID, RSV, Flu negative. CT brain chronic maxillary sinusitis. CTA head and neck mild atherosclerotic changes in the carotid arteries with no significant stenosis. Patient was admitted for further management. Neurology consulted, CVA workup initiated. 07/09 Patient was seen and examined. Aphasia resolved. Weakness improved. Ambulating comfortably. Almost back to baseline. Feels like he was dehydrated. A1c 5.6. Lipid panel T. Chol 132, LDL 60.2. UA trace protein, 1+ ketones. UDS negative. EtOH negative. Carotid doppler plaque in bilateral bulbs no significant stenosis. General: non toxic, no distress, appears at stated age Derm: warm, dry Head: atraumatic, normocephalic, symmetric Eyes: EOMI, no lid lag, anicteric sclera Mouth: no lip lesion, mucus membranes moist Cardiovascular: Normal S1 S2, no murmur Lungs: Clear to auscultation bilaterally, no rhonchi, no rales Ext: no gross muscle atrophy, no edema, no contractures Neuro: No focal neurologic deficits. Psych: Alert and oriented x 3 Based on my assessment of this patient, this patient meets a high complexity level of care. Patient has an acute diagnosis of TIA vs CVA that poses a threat to life or bodily function. TIA vs CVA: Symptoms include expressive aphasia. CVA workup initiated. MRI brain. Echo. Carotid US, A1c, Lipid panel as above. Neurochecks. Telemetry monitoring. ASA 81 mg PO QD. Plavix 75 mg PO QD. Increase Crestor to 20 mg PO QD (high intensity). Neurology consult. Rhabdomyolysis: Encourage hydration by mouth. Monitor renal function. Repeat CPK tomorrow. Transaminitis: Likely related to EtOH abuse. Leukocytosis: Likely reactive. No signs of active infection. Monitor fever profile. Alcohol abuse: CIWA protocol and Ativan PRN per [facility] protocol. Add MVI, Folate, Thiamine 5 supplementation. Chronic conditions: Anxiety, hypertension, COPD, GERD, urinary urgency, dyslipidemia CODE STATUS: FULL CODE. DVT Prophylaxis: Lovenox SQ GI Prophylaxis: Designated medical POA if patient is not able to make medical decisions for themselves: . I have reviewed the following practice management consultant notes: I have reviewed the results of the following tests: A1c, Lipid panel, UA, UDS, EtOH, Carotid US. I have ordered the following tests: Pending: MRI brain, Echo. CBC, BMP, CPK. I have discussed the care of this patient with the following independent historian: I have independently interpreted the following test below: I have discussed the management of this patient with the following physician: Objective - Vital Signs Vital signs: Vital Signs Temp 98.1 F 07/09/23 04:00 Pulse 76 07/09/23 04:00 Resp 17 07/09/23 04:00 BP 159/71 07/09/23 04:00 Pulse Ox 97 07/09/23 04:00 FiO2 Intake & Output 07/08/23 07/09/23 07/09/23 18:59 06:59 18:59 Intake Total 360 Balance 360 Weight 81.647 kg 85 kg Intake: Oral 360 Other: Voiding Method Toilet # Voids 2 - Labs CBC & Chem 7: 07/08/23 13:27 07/08/23 13:27 Labs: Abnormal Lab Results - Last 24 Hours (Table) 07/08/23 07/08/23 07/08/23 Range/Units 13:00 13:27 13:27 WBC 11.7 H (3.8-10.6) k/uL Neutrophils # 10.4 H (1.3-7.7) k/uL Lymphocytes # 0.6 L (1.0-4.8) k/uL Chloride 109 H (98-107) mmol/L Glucose 143 H (74-99) mg/dL POC Glucose (mg/dL) 132 H (70-110) mg/dL AST 70 H (17-59) U/L Creatine Kinase 2371 H* (55-170) U/L Ur Specific [place] (1.001-1.035) Urine Protein (Negative) Urine Ketones (Negative) 07/08/23 Range/Units 13:27 WBC (3.8-10.6) k/uL Neutrophils # (1.3-7.7) k/uL Lymphocytes # (1.0-4.8) k/uL Chloride (98-107) mmol/L Glucose (74-99) mg/dL POC Glucose (mg/dL) (70-110) mg/dL AST (17-59) U/L Creatine Kinase (55-170) U/L Ur Specific [place] 1.041 H (1.001-1.035) Urine Protein Trace H (Negative) Urine Ketones 1+ H (Negative)
--- NOTE | 2023-07-09 16:19 | P.CNNES ---
History of Present Illness Consult date: 07/09/23 Reason for Consult: CVA History of Present Illness: The pt is a 72 y/o male who is seen in neurologic consultation on 2023, in collaboration with Dedrick Escobedo, via teleneurology. History is obtained from the pt, , who is present at the bedside and review of the chart. The pt believes his symptoms are secondary to dehydration, because he, his and 2 friends reportedly drank 4 bottles of wine. The pt is unable to report exactly how much he drank. In review of the H & P, the pt drinks one bottle of wine daily. Per pt, he experienced generalized weakness and was unable to speak. His agrees with this. The pt reportedly has a history of a CVA occurring in 2015, following chiropractic manipulation of his neck. The pt denies residual symptoms. In the ER, the pt was given IV fluids. His CPK was found to be foley rkedly elevated. CT scan of the brain was negative for acute hemorrhage and infarct. 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 Past Psychological History: No Psychological Hx Reported Smoking Status: Never smoker Past Alcohol Use History: Heavy Past Drug Use History: None Reported Medications and Allergies Home Medications Medication Instructions Recorded Confirmed Type ALPRAZolam [Xanax] 0.25 mg PO DAILY PRN 07/08/23 07/08/23 History Fluticasone/Umeclidin/Vilanter 1 puff INHALATION RT-DAILY 07/08/23 07/08/23 History [Trelegy Ellipta 200-62.5-25] Irbesartan [Avapro] 300 mg PO DAILY 07/08/23 07/08/23 History Montelukast [Singulair] 10 mg PO DAILY 07/08/23 07/08/23 History Omeprazole [PriLOSEC] 20 mg PO BID 07/08/23 07/08/23 History Rosuvastatin [Crestor] 10 mg PO DAILY 07/08/23 07/08/23 History Sildenafil Citrate [Viagra] 100 mg PO DAILY PRN 07/08/23 07/08/23 History Testosterone Cypionate 200 mg IM Q7D 07/08/23 07/08/23 History [Depo-Testosterone] Zolpidem Tartrate [Ambien] 5 mg PO HS PRN 07/08/23 07/08/23 History amLODIPine [Norvasc] 2.5 mg PO DAILY 07/08/23 07/08/23 History oxyBUTYnin chloride [Ditropan] 5 mg PO TID 07/08/23 07/08/23 History Allergies Allergy/AdvReac Type Severity Reaction Status Date / Time Penicillins Allergy Rash/Hives Verified 07/08/23 12:47 Physical Examination - Vital Signs Vital Signs: Vital Signs Temp Pulse Pulse Resp BP BP Pulse Ox 07/09/23 04:00 98.1 F 76 17 159/71 97 07/09/23 02:00 85 17 07/09/23 00:00 98.2 F 85 17 153/87 97 07/08/23 22:00 94 17 07/08/23 21:56 98.1 F 94 18 177/99 96 07/08/23 21:00 99 18 154/104 97 07/08/23 20:00 96 18 158/104 97 07/08/23 19:00 98 17 152/100 97 07/08/23 18:00 98 16 159/108 97 07/08/23 17:00 100 20 147/102 97 07/08/23 16:00 90 18 144/95 97 07/08/23 15:00 89 18 148/103 96 07/08/23 13:31 89 20 147/97 99 07/08/23 12:41 97.7 F 92 16 151/90 98 Intake and Output 07/08/23 07/09/23 07/09/23 22:59 06:59 14:59 Intake Total 360 Balance 360 Intake: Oral 360 Other: Voiding Method Toilet Toilet # Voids 2 Weight 81.647 kg 85 kg General: The pt is seated in the bedside chair. He is in no acute distress. HEENT: Head is atraumatic, normocephalic. There is no scleral icterus. Fundus not visualized. Mucous membranes moist. Neck: Supple without bruits Heart: Regular rate and rhythm Lungs: No cough or wheezing Extremities: No edema Neurological Exam Mental status: The pt is awake, alert and oriented x3. Speech is fluent. No dysarthria or aphasia Cranial nerves: Pupils equal at 2mm and reactive. Visual goldstein full. Extraocular movements intact. No nystagmus. Facial sensation intact. No facial asymmetry. Hearing grossly intact. Uvula and palate midline. Shoulder shrug symmetric. Tongue protrudes midline. Motor: Strength is 5/5 throughout Sensation: Intact to light touch throughout. No extinction with double simultaneous stimulation Deep tendon reflexes: 2+/4+ throughout. Plantar responses are flexor Coordination: Finger to nose, rapid alternating movements and heel to espinal test ing is intact Gait: Not assessed Results - Laboratory Findings CBC and BMP: 07/08/23 13:27 07/08/23 13:27 Abnormal Lab Findings: Abnormal Labs 07/08/23 07/08/23 07/08/23 13:00 13:27 13:27 WBC 11.7 H Neutrophils # 10.4 H Lymphocytes # 0.6 L Chloride 109 H Glucose 143 H POC Glucose (mg/dL) 132 H AST 70 H Creatine Kinase 2371 H* Ur Specific [place] Urine Protein Urine Ketones 07/08/23 13:27 WBC Neutrophils # Lymphocytes # Chloride Glucose POC Glucose (mg/dL) AST Creatine Kinase Ur Specific [place] 1.041 H Urine Protein Trace H Urine Ketones 1+ H Assessment and Plan Assessment: 1. Probable TIA 2. History of CVA 3. Hx HTN 4. Hx hyperlipidemia 5. Alcohol abuse Plan: 1. Stroke orders, including lipid panel, A1C, TSH, PT, OT, ST 2. Agree with MRI 3. 2D echo 4. Agree with CIWA protocol 5. ETOH cessation Thank you for allowing us to participate in the care of this pt. Dr. Terrell will assume neurologic coverage as of 2023 Time with Patient: Greater than 30
[2023-07-09] MEDS: ZOLPIDEM 5 MG TAB PO PRN (20:28)
[2023-07-10 08:33] LABS: HCT 44.5 % (39.0-53.0); HGB 14.6 gm/dL (13.0-17.5); MCH 32.6 pg (25.0-35.0); MCHC 32.8 g/dL (31.0-37.0); MCV 99.4 fL (80.0-100.0); Mean Platelet Volume 8.3; Platelet Count 218 k/uL (150-450); RBC 4.47 m/uL (4.30-5.90); WBC 7.6 k/uL (3.8-10.6)
[2023-07-10 09:05] LABS: African American GFR (CKD) >90 (>60 ml/min/1.73 sqM); Anion Gap 10 mmol/L; Blood Urea Nitrogen 13 mg/dL (9-20); Carbon Dioxide 27 mmol/L (22-30); Chloride 104 mmol/L (98-107); Glucose 92 mg/dL (74-99); Non-African American GFR(CKD) 87 (>60 ml/min/1.73 sqM); Potassium 3.9 mmol/L (3.5-5.1); Sodium 141 mmol/L (137-145)
[2023-07-10 09:23] LABS: Creatine Kinase 2286 U/L (55-170)
[2023-07-10] MEDS: LOSARTAN 50 MG TAB PO SCH (09:23)
[2023-07-10] MEDS: FOLIC ACID 1 MG TAB PO SCH (09:23)
[2023-07-10] MEDS: PANTOPRAZOLE 40 MG TABLET PO SCH (09:24)
[2023-07-10] MEDS: CLOPIDOGREL 75 MG TAB PO SCH (09:24)
[2023-07-10] MEDS: MONTELUKAST 10 MG TAB PO SCH (09:24)
[2023-07-10] MEDS: ATORVASTATIN 20 MG TAB PO SCH (09:24)
[2023-07-10] MEDS: THIAMINE 100 MG TAB PO SCH (09:24)
[2023-07-10] MEDS: MULTIVITAMINS, THERA 1 EACH TAB PO SCH (09:24)
[2023-07-10] MEDS: ASPIRIN 81 MG PO SCH (09:24)
[2023-07-10] MEDS: oxyBUTYnin chloride 5 MG TAB PO SCH ×3 (09:24→19:55)
[2023-07-10] MEDS: amLODIPine 2.5 MG TAB PO SCH (09:24)
[2023-07-10] MEDS: ENOXAPARIN 40 MG/0.4 ML SYRINGE SQ SCH (09:26)
--- NOTE | 2023-07-10 11:02 | P.PN ---
Subjective Progress Note Date: 07/10/23 Hospital course: Patient is a very pleasant 72-year-old male with a past medical history of hypertension, hyperlipidemia, CVA, anxiety, and daily alcohol use/abuse. He presented to the emergency department on 07/08/23 after being found with weakness and expressive aphasia. He underwent full evaluation in the emergency department. Upon arrival vital signs as follows blood pressure 151/90, heart rate 92, respiratory rate 16, temp 97.7F, SpO2 90% on room air. CT brain was completed and negative for acute intercranial process showing chronic maxillary sinusitis. Labs were completed and reviewed. CBC showing mild leukocytosis with WBC count of 11.7. BMP revealing hyperchloremia with chloride of 109 otherwise normal findings. Blood glucose was 143. Liver profile showing e levated AST of 70. Ammonia was less than 9. Creatinine kinase was 2371. Troponin was negative at less than 0.012. Urinalysis negative for infection. Urine drug screen negative. Serum alcohol level was less than 10. Influenza A, influenza B, RSV, and Covid were negative. EKG was completed showing normal sinus rhythm at 89 bpm with a first-degree AV block with NC interval of 220 ms. Chest x-ray was negative for acute cardiopulmonary process. CTA head and neck completed showing mild scattered atherosclerotic changes in the carotid arteries in the neck and intracranially with no evidence of significant stenosis or branch occlusion. Patient was admitted under our services with consultations neurology. Hemoglobin A1c normal findings at 5.6% and lipid profile was unremarkable. Carotid Dopplers completed negative for significant stenosis. Physical exam: Vital signs reviewed and stable. General: Nontoxic, no distress and appears stated age. Derm: Skin warm and dry, normal coloration for ethnicity. Head: Atraumatic, normocephalic and symmetric. Eyes: EOMs intact, no lid lag, and anicteric sclera Mouth: no lip lesions, mucus membranes moist Cardiovascular: regular rate and rhythm with normal S1S2, no murmur, positive posterior tibial pulses bilaterally, and cap refill < 2 seconds. Lungs: Respirations even, regular, and unlabored on room air. Lungs CTA bilaterally, no rhonchi, no rales, no wheezing, and no accessory muscle usage. Abdominal: soft, nontender to palpation, no guarding, no appreciable organomegaly Ext: ROM intact. No gross muscle atrophy, no edema, no contractures Neuro: Speech clear, face symmetrical and CN II-XII grossly intact with no noted focal neuro deficits Psych: Alert and oriented to person, place, time, and situation. Appropriate and pleasant affect. Assessment and Plan of Care: Patient is a 72-year-old male with a past medical history of hypertension, hyperlipidemia, CVA, anxiety, and daily alcohol use/abuse. He presented to the emergency department after being found with lower extremity weakness and expressive aphasia on 07/08/23. TIA vs CVA: Symptoms include expressive aphasia. -CT and CTA negative for acute process. -MRI brain to be completed. -Echocardiogram completed and pending results -Carotid US negative, -Hemoglobin A1c 5.6%. -Lipid panel unremarkable.. -Continue Neurochecks. -Telemetry monitoring. -Continue daily medication regimen with aspirin 81 mg PO daily and Plavix 75 mg PO daily. -Neurology following. -DVT prophylaxis with Lovenox 40 mg daily. Rhabdomyolysis: -Creatinine kinase remains elevated at 2286. -Patient started on 0.9% normal saline at 100 mL per hour. -We will hold statin at this time, although patient denies having any muscle pains/cramps, intermittent claudication, or weakness at this time. -Continue to Encourage oral hydration by mouth. -Obtain a stat TSH with free T4 and continue to monitor renal function. -Repeat CPK tomorrow morning. Elevated liver enzyme: -Likely related to daily EtOH abuse. Leukocytosis: -Likely reactive from rhabdomyolysis. No signs of active infection. Monitor fever profile ordered for any new signs/symptoms of infectious process. Alcohol abuse: -Continue monitoring of CIWA scores and patient to be medicated with Ativan 0.5 mg every 4 hours as needed for CIWA score of 4-5, Ativan 1 mg every 4 hours for CIWA score of 6-7, Ativan 2 mg every 3 hours CIWA score of 8-9, and Ativan 2 mg every 2 hours forr CIWA score of 10 or greater. -Thiamine 100 mg twice a day, Multivitamin daily, and Folate 1 mg daily -Seizure, fall, aspiration, and elopement precautions in place. -Urine drug screen was negative -Continued close monitoring of electrolytes and replace as needed. -Telemetry monitoring. Chronic conditions: Anxiety, hypertension, COPD, GERD, urinary urgency, dyslipidemia Continue daily medication regimen with Xanax 0.25 mg daily as needed for anxiety, amlodipine 2.5 mg daily, aspirin 81 mg daily atorvastatin 20 mg daily, Symbicort 2 puffs twice daily, losartan 100 mg daily, Singulair 10 mg daily, and oxybutynin 5 mg twice daily and 10 mg nightly. Data and imaging reviewed: Vital signs reviewed and stable. 134/79, heart rate 82, respiratory rate 16, temp 98.1 Fahrenheit, SpO2 of 96% on room air. Morning labs reviewed. CBC and BMP were unremarkable. Creatinine kinase remains elevated at 2286. CODE STATUS: FULL CODE. DVT Prophylaxis: Lovenox SQ GI Prophylaxis: Designated medical POA if patient is not able to make medical decisions for themselves: . Anticipated discharge date: Clinical course to determine Anticipated discharge place: Home Patient was seen independently by Nurse Pracitioner. This document was prepared using [employer] dictation software. Please allow for errors in welder pipe making, while rare they do occur. I reviewed the documentation as provided by the SUEGY above, who is the original author of this note. I agree with the documented assessment and plan, with the following changes: none Objective - Vital Signs Vital signs: Vital Signs Temp 98.1 F 07/10/23 04:00 Pulse 82 07/10/23 04:00 Resp 16 07/10/23 04:00 BP 134/79 07/10/23 04:00 Pulse Ox 96 07/10/23 04:00 FiO2 Intake & Output 07/09/23 07/10/23 07/10/23 18:59 06:59 18:59 Intake Total 840 118 Balance 840 118 Intake: Oral 840 118 Other: Voiding Method Toilet Toilet # Voids 2 1 - Labs CBC & Chem 7: 07/10/23 06:49 07/10/23 06:49
[2023-07-10] MEDS: SODIUM CHLORIDE 0.9% 1,000 ML IV SCH ×2 (11:18→23:46)
--- NOTE | 2023-07-10 12:27 | CA ---
Transthoracic Echo Report Name: Kleber Tee Age: 72 Gender: M : 1950 Exam Date: 07/10/2023 09:46 Exam Location: [facility] Ht (in): 70 Wt (lb): 180 Ordering Physician: Linda York MD Attending/Referring Phys: Trimming Machine Set Up Operator Julieta Chadwick RD Procedure CPT: Indications: CVA Cardiac Hx: Technical Quality: Fair Contrast 1: Total Dose (mL): Contrast 2: Total Dose (mL): MEASUREMENTS (Male / Female) Normal Values 2D ECHO LV Diastolic Diameter PLAX 4.1 cm 4.2 - 5.9 / 3.9 - 5.3 cm LV Systolic Diameter PLAX 2.3 cm IVS Diastolic Thickness 0.9 cm 0.6 - 1.0 / 0.6 - 0.9 cm LVPW Diastolic Thickness 1.1 cm 0.6 - 1.0 / 0.6 - 0.9 cm LV Relative Wall Thickness 0.5 RV Internal Dim ED PLAX 3.0 cm LVOT Diameter 2.2 cm Aortic Root Diameter 4.0 cm LV Diastolic Volume MOD BP 62.9 cm??? 67 - 155 / 56 - 104 cm??? LV Systolic Volume MOD BP 26.5 cm??? 22 - 58 / 19 - 49 cm??? LV Ejection Fraction MOD BP 57.9 % >= 55 % LV Cardiac Index MOD BP 1409.1 cm???/min???m??? LV Diastolic Volume MOD 4C 83.6 cm??? LV Systolic Volume MOD 4C 35.3 cm??? LV Ejection Fraction MOD 4C 57.7 % LV Cardiac Index MOD 4C 1864.3 cm???/min???m??? LV Diastolic Length 4C 7.3 cm LV Systolic Length 4C 6.5 cm LV Diastolic Volume MOD 2C 40.5 cm??? LV Systolic Volume MOD 2C 16.8 cm??? LV Ejection Fraction MOD 2C 58.6 % LV Cardiac Index MOD 2C 918.2 cm???/min???m??? LV Diastolic Length 2C 6.2 cm LV Systolic Length 2C 5.4 cm LA Volume 32.5 cm??? 18 - 58 / 22 - 52 cm??? LA Volume Index 16.1 cm???/m??? 16 - 28 cm???/m??? Ascending Aorta Diameter 3.6 cm DOPPLER LVOT Peak Velocity 119.6 cm/s LVOT Peak Gradient 5.7 mmHg LVOT Velocity Time Integral 24.4 cm LVOT Stroke Volume 92.1 cm??? LVOT Stroke Volume Index 46.1 ml/m??? LVOT Cardiac Index 3557.1 cm???/min???m??? MV Peak Velocity 112.3 cm/s MV Peak Gradient 5.0 mmHg MV Mean Velocity 55.5 cm/s MV Mean Gradient 1.5 mmHg MV Velocity Time Integral 31.3 cm Mitral E Point Velocity 67.5 cm/s Mitral A Point Velocity 130.1 cm/s Mitral E to A Ratio 0.5 MV Deceleration Time 124.8 ms MV E' Velocity 4.2 cm/s Mitral E to MV E' Ratio 16.2 TR Peak Velocity 237.1 cm/s TR Peak Gradient 22.5 mmHg Right Ventricular Systolic Press 27.5 mmHg PV Peak Velocity 96.5 cm/s PV Peak Gradient 3.7 mmHg FINDINGS Left Ventricle Normal LV size and wall thickness. Left ventricular ejection fraction is estimated at 55-60 %. Right Ventricle Normal right ventricular size. RVSP= 27mmHg. Right Atrium Normal right atrial size. Left Atrium Normal left atrial size. Mitral Valve Structurally normal mitral valve. Aortic Valve Trileaflet aortic valve. Aortic sclerosis with no stenosis or regurgitation Tricuspid Valve Tricuspid valve not well visualized. Mild TR. Pulmonic Valve Pulmonic valve not well visualized. Trace PI. Pericardium Not well visualized. Aorta Increased AO root ary. AO root ary=4.1cm Ascending AO ary= 3.6cm CONCLUSIONS Normal LV systolic function Aortic sclerosis with no stenosis or regurgitation Previewed by: Dr. Ezio Payton MD (Electronically Signed) Final Date: 10 July 2023 12:26
[2023-07-10 12:34] LABS: T4, Free (Free Thyroxine) 1.06 ng/dL (0.78-2.19)
--- NOTE | 2023-07-10 17:27 | P.PN ---
Subjective Progress Note Date: 07/10/23 Patient was initially seen by Dr. Carter. Please refer to her note for details. Patient presented with probable TIA. Symptoms have resolved. Patient's family mentioned that he had an episode, in which she could not walk, could not talk, move his arms or legs. He could hear and understand everything. Symptoms have now completely resolved. Patient does drink 750 mL of wine most of the days of the week. He is planning to stop alcoholism. Objective - Vital Signs Vital signs: Vital Signs Temp 97.7 F 07/10/23 15:55 Pulse 86 07/10/23 15:55 Resp 17 07/10/23 15:55 BP 175/102 07/10/23 15:55 Pulse Ox 98 07/10/23 15:55 FiO2 Intake & Output 07/09/23 07/10/23 07/10/23 18:59 06:59 18:59 Intake Total 840 236 Balance 840 236 Intake: Oral 840 236 Other: Voiding Method Toilet Toilet Toilet # Voids 2 1 - Exam Patient's mental status, speech and language functions are normal. Cranial nerves are normal. Muscle strength is normal in the arms and legs. No pronator drift. No ataxia for [id number] testing. Sensory to touch is equal. - Labs CBC & Chem 7: 07/10/23 06:49 07/10/23 06:49 Labs: Abnormal Lab Results - Last 24 Hours (Table) 07/10/23 07/10/23 Range/Units 06:49 06:49 Creatine Kinase 2286 H* (55-170) U/L TSH 4.900 H (0.465-4.680) mIU/L Assessment and Plan Assessment: 1. Probable TIA 2. History of CVA 3. Hx HTN 4. Hx hyperlipidemia 5. Alcohol abuse Plan: 1. Stroke orders. Lipid panel revealed cholesterol 132, LDL 60, HDL 56, triglycerides 74. Continue Crestor 10 mg daily. Hemoglobin A1c 5.6. 2. MRI cannot be performed because patient has some left ear surgery in 2000, and cannot get MRI clearance. MRI canceled. 3. 2D echo revealed EF normal 55 to 60%. Normal left atrial size. Aortic valve sclerosis with no stenosis or regurgitation. 4. Agree with CIWA protocol 5. ETOH cessation 6. PT, OT, speech therapy 7. TSH is elevated 4.90, with normal free T4 of 1.06. IM to address. 8. Event monitor for 30 days. 9. Recommend dual antiplatelet medication with aspirin 81 mg and Plavix 75 mg for 21 days. Then stop Plavix and continue aspirin indefinitely. Neurologically clear for discharge.
[2023-07-10] MEDS: ZOLPIDEM 5 MG TAB PO PRN (19:55)
[2023-07-10] MEDS: SYMBICORT 80-4.5 MCG INHALER INHALATION SCH ×2 (21:50→21:51)
[2023-07-11 08:35] LABS: HCT 44.9 % (39.0-53.0); HGB 14.6 gm/dL (13.0-17.5); MCH 32.5 pg (25.0-35.0); MCHC 32.6 g/dL (31.0-37.0); MCV 99.7 fL (80.0-100.0); Mean Platelet Volume 8.2; Platelet Count 214 k/uL (150-450); RDW 11.9 % (11.5-15.5); WBC 7.9 k/uL (3.8-10.6)
[2023-07-11] MEDS: amLODIPine 2.5 MG TAB PO SCH (08:36)
[2023-07-11] MEDS: oxyBUTYnin chloride 5 MG TAB PO SCH (08:36)
[2023-07-11] MEDS: CLOPIDOGREL 75 MG TAB PO SCH (08:36)
[2023-07-11] MEDS: FOLIC ACID 1 MG TAB PO SCH (08:36)
[2023-07-11] MEDS: PANTOPRAZOLE 40 MG TABLET PO SCH (08:36)
[2023-07-11] MEDS: ASPIRIN 81 MG PO SCH (08:36)
[2023-07-11] MEDS: LOSARTAN 50 MG TAB PO SCH (08:37)
[2023-07-11] MEDS: MONTELUKAST 10 MG TAB PO SCH (08:37)
[2023-07-11] MEDS: MULTIVITAMINS, THERA 1 EACH TAB PO SCH (08:37)
[2023-07-11] MEDS: THIAMINE 100 MG TAB PO SCH (08:37)
[2023-07-11] MEDS: ENOXAPARIN 40 MG/0.4 ML SYRINGE SQ SCH (08:37)
[2023-07-11 08:49] LABS: ALT 54 U/L (4-49); AST 94 U/L (17-59); African American GFR (CKD) >90 (>60 ml/min/1.73 sqM); Albumin 4.3 g/dL (3.5-5.0); Alkaline Phosphatase 64 U/L (38-126); Anion Gap 10 mmol/L; Blood Urea Nitrogen 15 mg/dL (9-20); Calcium 9.7 mg/dL (8.4-10.2); Carbon Dioxide 23 mmol/L (22-30); Chloride 108 mmol/L (98-107); Glucose 77 mg/dL (74-99); Magnesium 1.9 mg/dL (1.6-2.3); Non-African American GFR(CKD) 85 (>60 ml/min/1.73 sqM); Potassium 3.5 mmol/L (3.5-5.1); Sodium 141 mmol/L (137-145); Total Bilirubin 0.9 mg/dL (0.2-1.3); Total Protein 7.3 g/dL (6.3-8.2)
[2023-07-11 09:08] VITALS: RESP 17; TEMP 97.7
--- NOTE | 2023-07-11 10:44 | P.DS ---
Providers Date of admission: 07/08/23 15:03 Expected date of discharge: 07/11/23 Attending physician: Linda York MD Consults: 07/08/23 15:06 Consult Physician Routine Consulting Provider: Bobbi Carter Consult Reason/Comments: cva Do you want consulting provider notified?: Yes Primary care physician: Montrell Clark [facility] Course: Discharge Diagnosis: TIA. Hemoglobin A1c normal findings at 5.6% and lipid profile was unremarkable. Carotid Dopplers completed negative for significant stenosis. Echocardiogram revealing a preserved EF of 55 to 60% with no significant valvular or structural abnormalities. Patient was unable to undergo MRI secondary to radiologist's reports of concerns of patient's previous ear surgery and concerns of implant and unable to get MRI clearance at this time. Neurology recommending patient continue dual antiplatelet therapy with aspirin 81 mg daily and Plavix 75 mg for the next 21 days then stop Plavix and continue aspirin indefinitely. Patient also being discharged home with an event monitor for 30 days. Patient to follow-up outpatient with his PCP in 2 days and with neurologist in 2 weeks. Rhabdomyolysis. Creatinine kinase is decreasing from 2371 down to 1000 after IV fluid hydration. Patient instructed he can either stay in the hospital for an additional 24 hours for continued IV fluid hydration or be discharged home if he ensured he will continue with adequate fluid hydration with Gatorade and/or Powerade for the next 24 hours and avoid any and all alcohol use. Patient adamant over discharge stating he would much rather hydrate at home than stay in the hospital and assured he will drink plenty of fluids as instructed and avoid all alcohol use. Atorvastatin was held today and patient was instructed he may resume rosuvastatin 10 mg daily tomorrow. Elevated liver enzyme: Likely related to daily EtOH abuse. Leukocytosis: Resolved. Alcohol abuse: Patient strongly encouraged on cessation of any and all alcohol use. Chronic conditions: Anxiety, hypertension, COPD, GERD, urinary urgency, dyslipidemia Continue daily medication regimen with Xanax 0.25 mg daily as needed for anxiety, amlodipine 2.5 mg daily, aspirin 81 mg daily atorvastatin 20 mg daily, Symbicort 2 puffs twice daily, losartan 100 mg daily, Singulair 10 mg daily, and oxybutynin 5 mg twice daily and 10 mg nightly. Hospital Course: Patient is a very pleasant 72-year-old male with a past medical history of hypertension, hyperlipidemia, CVA, anxiety, and daily alcohol use/abuse. He presented to the emergency department on 07/08/23 after being found with weakness and expressive aphasia. He underwent full evaluation in the emergency department. Upon arrival vital signs as follows blood pressure 151/90, heart rate 92, respiratory rate 16, temp 97.7F, SpO2 90% on room air. CT brain was completed and negative for acute intercranial process showing chronic maxillary sinusitis. Labs were completed and reviewed. CBC showing mild leukocytosis with WBC count of 11.7. BMP revealing hyperchloremia with chloride of 109 otherwise normal findings. Blood glucose was 143. Liver profile showing elevated AST of 70. Ammonia was less than 9. Creatinine kinase was 2371. Troponin was negative at less than 0.012. Urinalysis negative for infection. Urine drug screen negative. Serum alcohol level was less than 10. Influenza A, influenza B, RSV, and Covid were negative. EKG was completed showing normal sinus rhythm at 89 bpm with a first-degree AV block with VT interval of 220 ms. Chest x-ray was negative for acute cardiopulmonary process. CTA head and neck completed showing mild scattered atherosclerotic changes in the carotid arteries in the neck and intracranially with no evidence of significant stenosis or branch occlusion. Patient was admitted under our services with consultations neurology. Hemoglobin A1c normal findings at 5.6% and lipid profile was unremarkable. Carotid Dopplers completed negative for significant stenosis. Echocardiogram revealing a preserved EF of 55 to 60% with no significant valvular or structural abnormalities. Patient was unable to undergo MRI secondary to radiologist's reports of concerns of patient's previous ear surgery and concerns of implant and unable to get MRI clearance at this time. Neurology recommending patient continue dual antiplatelet therapy with aspirin 81 mg daily and Plavix 75 mg for the next 21 days then stop Plavix and continue aspirin indefinitely. Patient also being discharged home with an event monitor for 30 days. Patient to follow-up outpatient with his PCP in 2 days and with neurologist in 2 weeks. Physical exam: Vital signs reviewed and stable. General: Nontoxic, no distress and appears stated age. Derm: Skin warm and dry, normal coloration for ethnicity. Head: Atraumatic, normocephalic and symmetric. Eyes: EOMs intact, no lid lag, and anicteric sclera Mouth: no lip lesions, mucus membranes moist Cardiovascular: regular rate and rhythm with normal S1S2, no murmur, positive posterior tibial pulses bilaterally, and cap refill < 2 seconds. Lungs: Respirations even, regular, and unlabored on room air. Lungs CTA bilaterally, no rhonchi, no rales, no wheezing, and no accessory muscle usage. Abdominal: soft, nontender to palpation, no guarding, no appreciable organomegaly Ext: ROM intact. No gross muscle atrophy, no edema, no contractures Neuro: Speech clear, face symmetrical and CN II-XII grossly intact with no noted focal neuro deficits Psych: Alert and oriented to person, place, time, and situation. Appropriate and pleasant affect. A total of 35 minutes of time were spent preparing this complex discharge summary. Pt was discharged on 07/11/2023 at 10:30 AM. Patient was seen independently by Nurse Practitioner. This document was prepared using [employer] dictation software. Please allow for errors in traveling auditor while rare they do occur. Patient Condition at Discharge: Stable Plan - Discharge Summary Discharge Rx Participant: Yes New Discharge Prescriptions: New Aspirin 81 mg PO DAILY 90 Days #90 tab Clopidogrel [Plavix] 75 mg PO DAILY 21 Days #21 tab Continue amLODIPine [Norvasc] 2.5 mg PO DAILY Testosterone Cypionate [Depo-Testosterone] 200 mg IM Q7D Sildenafil Citrate [Viagra] 100 mg PO DAILY PRN PRN Reason: E.D. Irbesartan [Avapro] 300 mg PO DAILY ALPRAZolam [Xanax] 0.25 mg PO DAILY PRN PRN Reason: Anxiety Zolpidem Tartrate [Ambien] 5 mg PO HS PRN PRN Reason: Insomnia Rosuvastatin [Crestor] 10 mg PO DAILY Fluticasone/Umeclidin/Vilanter [Trelegy Ellipta 200-62.5-25] 1 puff INHALATION RT-DAILY Montelukast [Singulair] 10 mg PO DAILY oxyBUTYnin chloride [Ditropan] 5 mg PO BID Omeprazole [PriLOSEC] 20 mg PO BID oxyBUTYnin chloride 10 mg PO HS Discharge Medication List ALPRAZolam [Xanax] 0.25 mg PO DAILY PRN 07/08/23 [History] Fluticasone/Umeclidin/Vilanter [Trelegy Ellipta 200-62.5-25] 1 puff INHALATION RT-DAILY 07/08/23 [History] Irbesartan [Avapro] 300 mg PO DAILY 07/08/23 [History] Montelukast [Singulair] 10 mg PO DAILY 07/08/23 [History] Omeprazole [PriLOSEC] 20 mg PO BID 07/08/23 [History] Rosuvastatin [Crestor] 10 mg PO DAILY 07/08/23 [History] Sildenafil Citrate [Viagra] 100 mg PO DAILY PRN 07/08/23 [History] Testosterone Cypionate [Depo-Testosterone] 200 mg IM Q7D 07/08/23 [History] Zolpidem Tartrate [Ambien] 5 mg PO HS PRN 07/08/23 [History] amLODIPine [Norvasc] 2.5 mg PO DAILY 07/08/23 [History] oxyBUTYnin chloride [Ditropan] 5 mg PO BID 07/08/23 [History] oxyBUTYnin chloride 10 mg PO HS 07/09/23 [History] Aspirin 81 mg PO DAILY 90 Days #90 tab 07/11/23 [Rx] Clopidogrel [Plavix] 75 mg PO DAILY 21 Days #21 tab 07/11/23 [Rx] Follow up Appointment(s)/Referral(s): Montrell Thomas MD [Primary Care Provider] - 1-2 days (July 14 10:00) Elizabeth Cancino MD [REFERRING] - 2 Weeks (office will call you with appt time) Patient Instructions/Handouts: Rhabdomyolysis (DC), Stroke (DC) Activity/Diet/Wound Care/Special Instructions: Activity: As tolerated. Take breaks as needed. Diet: Heart healthy and carb consistent diet. Avoid salts, or foods with hidden salts such as canned or boxed foods and frozen dinners. Extra salt makes your heart work harder and traps the fluid in your body for longer. Special Instructions: Take all of your medications as directed and remember to keep all of your doctor's appointments and follow-up as needed. You are beingg discharged home with 30-day event Monitor, results to be sent to Dr. Thomas your PCP. As strongly discussed with you at bedside, you are being discharged home with your creatinine kidney still elevated which requires you to ensure adequate hydration over the next 48 hours encourage increased electrolyte infused beverages such as Gatorade or Powerade and avoidance of any and all alcohol use. Thank you for allowing us to participate in your care, it was truly a pleasure having you for our patient!!! Discharge Disposition: HOME SELF-CARE
[2023-07-11] MEDS: SODIUM CHLORIDE 0.9% 1,000 ML IV SCH (11:45)
[2023-07-11 12:31] VITALS: BP 153/97; PULSE 85
== END 2023-07-11 12:02 | disposition home or self-care (01) | DRG 69 ==
LOC: EC 12:28 → 3SCARD 15:03
PROVIDERS: ADMIT Family Medicine; ATTEND Family Medicine
DX: G45.9 Transient cerebral ischemic attack, unspecified (principal); M62.82 Rhabdomyolysis; R47.01 Aphasia; E87.8 Other disorders of electrolyte and fluid balance, not elsewhere classified; J44.9 Chronic obstructive pulmonary disease, unspecified; I10 Essential (primary) hypertension; F10.10 Alcohol abuse, uncomplicated; Y90.0 Blood alcohol level of less than 20 mg/100 ml; E78.5 Hyperlipidemia, unspecified; F41.9 Anxiety disorder, unspecified; I44.0 Atrioventricular block, first degree; I45.10 Unspecified right bundle-branch block; J32.0 Chronic maxillary sinusitis; K21.9 Gastro-esophageal reflux disease without esophagitis; R39.15 Urgency of urination; R47.1 Dysarthria and anarthria; R74.01 Elevation of levels of liver transaminase levels; R74.8 Abnormal levels of other serum enzymes; Z79.51 Long term (current) use of inhaled steroids; Z79.890 Hormone replacement therapy; Z79.899 Other long term (current) drug therapy; Z88.0 Allergy status to penicillin
CPT/HCPCS: 36415; 70450; 70496; 70498; 71046; 80048; 80053; 80061; 80306; 80320; 81003; 82140; 82550; 83036; 83735; 83874; 84439; 84443; 84484; 85025; 85027; 85610; 85730; 87636; 93005; 93270; 93306; 93880; 96360; 96361; 99291

== ENCOUNTER 2023-08-25 06:13 | Day surgery (SDC) | payer MEDICARE, OTHER ==
[2023-08-22 16:06] VITALS: BMI 26.8
[~2023-08-25 06:13] MED LIST: ALPRAZolam 0.25 MG TAB PO PRN; ALPRAZolam 0.5 MG TAB PO PRN; ASPIRIN 325 MG TAB PO STA; NITROGLYCERIN SL TABS 0.4 MG TAB SUBLINGUAL PRN
[2023-08-25] MEDS: SODIUM CHLORIDE 0.9% 1,000 ML in EMPTY BAG 1 BAG IV SCH (06:33)
[2023-08-25 06:38] VITALS: TEMP 97.8
[2023-08-25] MEDS ORDERED: fentaNYL (PF) 50 MCG/ML 2 ML AMP ONE (07:17)
[2023-08-25] MEDS: BENZOCAINE SPRAY 1 CAN TOPICAL ONE (07:25)
[2023-08-25] MEDS: fentaNYL (PF) 50 MCG/ML 2 ML AMP IVP ONE (07:35)
[2023-08-25] MEDS: MIDAZOLAM 2 MG/2 ML VIAL IVP ONE ×2 (07:35→07:38)
[2023-08-25 08:20] VITALS: RESP 16
--- NOTE | 2023-08-25 08:44 | P.PCN ---
Date of Procedure: 08/25/23 Operative Findings: TRANSESOPHAGEAL ECHOCARDIOGRAM STAMPER BLOCKER: SURINDER RAMSEY MD, RPVI INDICATION: Rule out cardiac source of embolization SEDATION: Conscious sedation COMPLICATION: None LEVEL OF SEDATION Moderate with sedation length of 12-minute PROCEDURE DESCRIPTION: After obtaining an informed consent, the patient was brought to transesophageal echocardiogram room. Pulse oximetry and heart monitors were attached to the patient. The patient throat was sprayed using lidocaine. The patient was turned into left lateral position. After that a bite guard was placed. After an appropriate conscious sedation was initiated, the transesophageal echocardiogram was advanced through a bite guard into the mid esophagus. A 2-D echocardiogram images, color Doppler images, continuous wave images, pulse-wave images, of various cardiac structure were performed. After that the transesophageal echocardiogram probe was advanced into the stomach and fixed to obtain transgastric view was. The probe was brought into the mid esophagus. Inter-atrial septum was interrogated using 2D images, color Doppler images, and then contrast study. After that transesophageal echocardiogram was withdrawn out and upon withdrawing the descending thoracic aorta all the way up to the arch was evaluated. CONCLUSION: 1. Hyperdynamic interatrial septum with no clear-cut evidence of shunt identified 2. No evidence of cardiac source of embolization 3. Normal left atrial appendage 4. Normal LV systolic function 5. Normal intracardiac valves beside aortic sclerosis and mitral annular calcifications 6. No evidence of pericardial effusion
[2023-08-25 09:33] VITALS: BP 140/81; PULSE 66
== END 2023-08-25 09:31 | disposition home or self-care (01) ==
LOC: CATHCVL 06:13
PROVIDERS: ATTEND Internal Medicine Interventional Cardiology
DX: I70.0 Atherosclerosis of aorta (principal); I10 Essential (primary) hypertension; E78.5 Hyperlipidemia, unspecified; F10.90 Alcohol use, unspecified, uncomplicated; Z88.0 Allergy status to penicillin; Z86.79 Personal history of other diseases of the circulatory system; Z79.01 Long term (current) use of anticoagulants; Z79.899 Other long term (current) drug therapy; Z86.73 Personal history of transient ischemic attack (TIA), and cerebral infarction without residual deficits
CPT/HCPCS: 93312; 93320; 93325; 99152; J2250; J3010